=== PATIENT | male | born 1950 | race Caucasian/White ===

== ENCOUNTER 2018-04-29 23:15 | Inpatient (IN) | payer OTHER ==
[~2018-04-29] VITALS: Ht 180.3 cm; Wt 85.7 kg
--- NOTE | ~2018-04-29 | EKG ---
[address] [address] ELECTROCARDIOGRAM REPORT Name: JOSEPH CHAU MODESTO Room #: 449-I ADM IN M.R.#: [id number] Admission: 04/30/18 Attend Phys: Cornelio Phan MD Discharge: Date of : 46 Report #: [id number] THIS REPORT FOR: //name// [facility] ED Test Date: 2018-04-29 Test Time: 23:48:56 Pat Name: JOSEPH CHAU Department: Room: formerly [facility] Gender: M Community Health Education Coordinator: ASHLY : 1950 Requested By: Ada Juarez Order Number: [id number] MD: Rene Sheffield Measurements Intervals [place] Rate: 80 P: 57 TN: 151 QRS: 48 QRSD: 95 T: 49 QT: 355 QTc: 410 Interpretive Statements Sinus rhythm No significant abnormality Compared to ECG 01/24/2018 10:46:44 No significant change was found Electronically Signed On 04-30-2018 8:12:31 CDT by Rene Sheffield [email or web address] <ELECTRONICALLY SIGNED> By: Rene Sheffield MD, [facility] 04/30/18 0812 [id number] Rene Sheffield MD, [facility] /EPI
[~2018-04-29 23:15] MED LIST: ASA5UEC PO; ASPIRIN81 M2 PO; ATORVASTATIN CA40 MG PO; CARAFATE 1 GM TA1 G1 PO; CARAFATE 11 GM/10 M1 PO; CENTRUM SILVER1 EAC2 PO; COREG25 MG PO; COUMADIN 5 MG TA5 M1 PO; ELIQUIS5 MG PO; FLAGYL500 MG PO; FLECAINIDE ACET50 M2 PO; HYDROXYZINE HCL25 M1 PO; LASIX 20 MG TAB20 MG PO; LEVAQUIN 750 M750 MG PO; LOPRESSOR50 PO; MIRALAX17 GM PO; MULTAQ 400 MG400 MG PO; PACERONE 200 M200 M1 PO; PLAVIX 75 MG TA75 M1 PO; PROTONIX40 M1 PO; UNICOMPLEX M TA1 TA1; VITAMIN D5000 UNIT PO
[2018-04-29 23:20] VITALS: BP 156/80
[2018-04-29] MEDS ORDERED: PROTONIX 20 MG20 M1 PO (23:53)
[2018-04-30 00:26] LABS: ABSOLUTE NEUTROPHILS 6.8 thou/uL (1.4-8.2); BASOPHILS 0.6 % (0.0-2.0); EOSINOPHILS 1.1 % (0.0-3.0); HEMATOCRIT 41.8 % (42.0-52.0); HEMOGLOBIN 14.2 gm/dL (14.0-18.0); LYMPHOCYTES 10.3 % (24.0-44.0); MCH 30.4 pg (26.0-34.0); MCV 89.5 fL (80.0-100.0); MONOCYTES 9.2 % (1.0-8.0); PLATELET COUNT 252 thou/uL (150-400); POLYS 78.8 % (36.0-66.0); RBC 4.66 mil/uL (4.50-6.00); RDW 14.1 % (10.5-14.5); WBC 8.7 thou/uL (4.0-11.0)
[2018-04-30 00:33] LABS: ANION GAP 9 mmol/L (7-16); BUN 33 mg/dL (7-18); CALCIUM 10.1 mg/dL (8.5-10.1); CHLORIDE 103 mmol/L (98-107); CO2 27 mmol/L (21-32); CREATININE 1.7 mg/dL (0.7-1.3); GLUCOSE 109 mg/dL (74-106); POTASSIUM 3.8 mmol/L (3.5-5.1); SODIUM 139 mmol/L (136-145)
[2018-04-30 00:42] LABS: ALBUMIN 4.4 g/dL (3.4-5.0); SGOT 126 U/L (15-37); SGPT 107 U/L (30-65); TROPONIN-I <0.06 ng/mL (<0.06)
[2018-04-30 00:55] LABS: LIPASE 5795 U/L (73-393)
[2018-04-30 01:32] VITALS: BP 120/68
[2018-04-30 02:17] VITALS: BP 149/90
[2018-04-30 05:14] LABS: CHOLESTEROL 133 mg/dL (<200); HDL CHOLESTEROL 43 mg/dL (>40); LDL CHOLESTEROL 65 mg/dL (<100); SERUM ASSESSMENT Clear; TC:HDL 3.1 Ratio (Not establshd); TRIGLYCERIDE 127 mg/dL (<150); VLDL 25 mg/dL (<40)
[2018-04-30 07:32] VITALS: BP 126/72
[2018-04-30 15:47] VITALS: BP 163/89
[2018-04-30 18:55] VITALS: BP 146/85
[2018-05-01 07:39] VITALS: BP 134/78
[2018-05-01 08:49] LABS: ALBUMIN 3.6 g/dL (3.4-5.0); CREATININE 1.4 mg/dL (0.7-1.3); POTASSIUM 4.1 mmol/L (3.5-5.1); TOTAL BILIRUBIN 1.1 mg/dL (<0.1-1.0); TOTAL PROTEIN 6.5 g/dL (6.4-8.2)
[2018-05-01 10:13] LABS: MCH 30.6 pg (26.0-34.0); MCHC 34.1 g/dL (28.0-37.0); MCV 89.5 fL (80.0-100.0); RBC 4.24 mil/uL (4.50-6.00); RDW 14.2 % (10.5-14.5); WBC 8.8 thou/uL (4.0-11.0)
[2018-05-01 16:14] VITALS: BP 136/69
[2018-05-01 19:20] VITALS: BP 141/66
[2018-05-02 07:39] VITALS: BP 132/73
[2018-05-02 07:53] LABS: HEMATOCRIT 35.8 % (42.0-52.0); HEMOGLOBIN 12.4 gm/dL (14.0-18.0); MCH 31.1 pg (26.0-34.0); MCHC 34.8 g/dL (28.0-37.0); MCV 89.5 fL (80.0-100.0); WBC 5.4 thou/uL (4.0-11.0)
[2018-05-02 08:10] LABS: CALCIUM 8.8 mg/dL (8.5-10.1); CREATININE 1.3 mg/dL (0.7-1.3); MAGNESIUM 1.9 mg/dL (1.8-2.4); POTASSIUM 3.7 mmol/L (3.5-5.1)
[2018-05-02 08:56] LABS: ALBUMIN 3.1 g/dL (3.4-5.0); DIRECT BILIRUBIN 0.3 mg/dL (<0.1-0.3); TOTAL BILIRUBIN 0.9 mg/dL (<0.1-1.0); TOTAL PROTEIN 6.3 g/dL (6.4-8.2)
[2018-05-02] MEDS ORDERED: AUGMENTIN 875-1 EACH PO (11:11)
[2018-05-02 11:26] VITALS: BP 132/73
== END 2018-05-02 13:26 | disposition home or self-care (01) | DRG 438 ==
LOC: ER 23:15 → EROBS 04-30 01:16 → 4W 04-30 01:16
PROVIDERS: Internal Medicine; Nurse Practitioner Acute Care; Student in an Organized Health Care Education/Training Program
DX: K85.90 Acute pancreatitis without necrosis or infection, unspecified (principal); N17.0 Acute kidney failure with tubular necrosis; K86.1 Other chronic pancreatitis; I25.10 Atherosclerotic heart disease of native coronary artery without angina pectoris; I48.91 Unspecified atrial fibrillation; R74.0 Nonspecific elevation of levels of transaminase and lactic acid dehydrogenase [LDH]; N18.3 Chronic kidney disease, stage 3 (moderate); K21.9 Gastro-esophageal reflux disease without esophagitis; K22.70 Barrett's esophagus without dysplasia; E78.5 Hyperlipidemia, unspecified; Z88.8 Allergy status to other drugs, medicaments and biological substances; Z95.5 Presence of coronary angioplasty implant and graft; Z95.810 Presence of automatic (implantable) cardiac defibrillator; Z79.82 Long term (current) use of aspirin; Z79.899 Other long term (current) drug therapy; Z88.0 Allergy status to penicillin; Z87.891 Personal history of nicotine dependence; I12.9 Hypertensive chronic kidney disease with stage 1 through stage 4 chronic kidney disease, or unspecified chronic kidney disease
CPT/HCPCS: 10040

== ENCOUNTER 2018-05-25 05:31 | Day surgery (SDC) | payer OTHER ==
[~2018-05-25] VITALS: Ht 180.3 cm; Wt 82.1 kg
--- NOTE | ~2018-05-25 | O ---
[facility] [place] [address] [place] [address] OPERATIVE REPORT Name: KANDI,JOSEPH MODESTO HOBBS Room #: DEP [facility] M..#: [id number] Admission: 05/25/18 Attend Phys: Bhavik Barnes MD, Discharge: 05/25/18 Date of : 46 Report #: [id number] THIS REPORT FOR: //name// CC: Devonte Barnes DATE OF SERVICE: 05/25/2018 PREOPERATIVE DIAGNOSES: 1. Symptomatic cholelithiasis with sludge. 2. Prior gallstone pancreatitis. POSTOPERATIVE DIAGNOSES: 1. Symptomatic cholelithiasis with sludge. 2. Prior gallstone pancreatitis. PROCEDURE: Laparoscopic cholecystectomy with intraoperative cholangiogram. SURGEON: Bhavik Barnes M.D. RESPIRATORY THERAPIST: Medical student. ANESTHESIA: General endotracheal anesthesia. ESTIMATED BLOOD LOSS: Minimal (less than 5 mL). COMPLICATIONS: None appreciated. SPECIMENS: Gallbladder to pathology. INDICATIONS: The patient is a 67-year-old male who has been admitted on multiple prior occasions with gallstone pancreatitis and radiologic workup showing small gallstones and sludge as the likely culprit. As such, indication was for the above-mentioned procedure for definitive surgical management ongoing. DESCRIPTION OF PROCEDURE: After explaining the risks, benefits and alternatives of the procedure with the patient in detail in the preoperative holding area and obtaining written consent, the patient was brought to the operating room and placed supine on the operating room table. After conducting a thorough timeout procedure verifying correct patient and procedure, the patient was given general endotracheal anesthesia. Once adequate anesthesia was obtained, his SCDs were hooked up to pneumatic compression device. He was given a preoperative dose of antibiotics in line with the SCIP protocol. The patient's abdomen was prepped and draped in standard surgical sterile fashion. A 5 mL of 0.5% Marcaine with epinephrine was used to anesthetize the skin in the supraumbilical location. A [facility] [address] [place] [address] OPERATIVE REPORT Name: JOSEPH CHAU Room #: DEP [facility]#: [id number] Admission: 05/25/18 Attend Phys: Bhavik Barnes MD, Discharge: 05/25/18 Date of : 46 Report #: [id number] #15 bladed scalpel was used to create a 1 cm transverse skin incision at this location. An 11 mm Visiport was placed over 0 degree 5 mm laparoscope and was introduced through this incision site. Once intra-abdominal placement was verified visually, the obturator for the trocar and laparoscope were both removed and the abdomen was insufflated to 15 mmHg using carbon dioxide gas. The laparoscope was changed to a 5-mm 30-degree laparoscope, which was reintroduced through this trocar. The entire abdomen was evaluated to ensure no injury upon entry. The patient was now placed in reverse Trendelenburg with right side elevated and I proceeded to place three additional 5 mm ports. One was placed in subxiphoid location and two were placed along the patient's right subcostal margin. All three additional 5 mm ports were placed under direct vision after anesthetizing the skin at each location with 5 mL of 0.5% Marcaine with epinephrine and I had created small skin nicks using #15 bladed scalpel. The gallbladder was extremely taut and as such a Topel needle was used to aspirate 120 mL of normal-appearing bile from the gallbladder itself. Using the inferolateral most port along the patient's right flank, the fundus of the gallbladder was grasped and retracted cephalad. Careful tedious dissection was undertaken down around the cholecystocystic junction using combination of Harmonic scalpel and [place] dissector. Once I had attained a critical view, namely the cystic duct emanating from the infundibulum of the gallbladder and coursing to the common bile duct as well as cystic artery running the surface of the gallbladder and I created a window behind each, I transected the cystic artery nearest to the gallbladder side using Harmonic scalpel for hemostasis. A single clip was now placed along the cystic duct nearest to the gallbladder side and a small ductotomy was made just distal to this clip using EndoShears. This ductotomy was cannulated using the Taut cholangiocatheter setup and an intraoperative cholangiogram was obtained. We had prompt opacification of the long cystic duct with both intra and extrahepatic bile ducts becoming opacified. There was antegrade flow of contrast into the duodenum with no evidence of filling defects or obstruction. The cholangiocatheter setup was removed. Three clips were placed along the cystic duct nearest to the common bile duct side and it was transected above these clips using Harmonic scalpel to help seal the end of the duct closed. Further retraction at the infundibulum of the gallbladder in cephalad direction allowed me to elevate the gallbladder off the liver bed using Harmonic scalpel for hemostasis. Once completely detached, the laparoscope was removed, changed to the right midclavicular 5 mm port. The EndoCatch bag was placed in supraumbilical trocar. The specimen was placed within it under direct vision. The pursestring suture was drawn and specimen was removed from the abdomen under direct vision with ease. I then closed the supraumbilical fascial incision using 0 PDS suture on the Elvin-Narda suture passer device under direct vision. This was tied down under direct vision. The gallbladder fossa was evaluated one additional time. The suction breaker oiler was used to irrigate 500 mL of normal saline, which ran clear. The liver bed was raw but we had hemostasis and as such, I did elect to place Lloyd in the bed of the gallbladder fossa for ongoing long-term hemostasis. One final evaluation showed no further evidence of pathology. The clips were seated nicely on the [facility] [address] [place] [address] OPERATIVE REPORT Name: KANDIJOSEPH II Room #: DEP [facility]#: [id number] Admission: 05/25/18 Attend Phys: Bhavik Barnes MD, Discharge: 05/25/18 Date of : 46 Report #: [id number] cystic duct stump remnant. The abdomen was fully desufflated. All remaining trocars were removed under direct vision. A 4-0 Monocryl was used in a standard subcuticular fashion for all skin incisions and Dermabond glue was applied to all skin wounds. The gallbladder was opened on the back table showing significant findings of small gallstones and sludge as well as significant cholesterolosis consistent with chronic cholecystitis, but no other pathologic findings were identified. At the end of the procedure all instrument, needle and sponge counts were correct. The patient tolerated the procedure without incident, was awakened in the operating room, transitioned to the recovery room in stable condition with no apparent complications. <ELECTRONICALLY SIGNED> By: Bhavik Barnes MD, FACS 05/26/18 0807 [id number] Bhavik Barnes MD, FACS /nt
--- NOTE | ~2018-05-25 | PATH ---
[facility] [address] [place] [address] PATHOLOGY RPT PROCEDURE Name: JOSEPH NOVAK II Room #: DEP [facility] M.R.#: [id number] Admission: 05/25/18 Date of : 46 Discharge: 05/25/18 Report #: [id number] Path Case #: [id number] [facility] Accession Number: [id number] . 01 Material submitted: . GALLBLADDER . 01 Clinical history: . Gallbladder sludge . 02 Diagnosis: Gallbladder "gallbladder cholecystectomy": - Moderate chronic cholecystitis. (SHA:alireza; 05/26/2018) QMS/05/26/2018 . 02 Electronically signed: . Matt Lambert MD, Pathologist NPI- [id number] . 01 Gross description: . The specimen is received in formalin, labeled "Joseph Novak II, gallbladder" and consists of a previously opened pink-amaya and edematous gallbladder measuring 6.6 cm in length and up to 3.1 cm in diameter. The mucosa is pink-phillips with multifocal areas of hemorrhage. No calculi are present within the container. The gallbladder wall averages 0.3 cm and no masses or lesions are identified. Formation Testing Operator sections are submitted in A1-A2. (SDY; 05/25/2018) SYU/SYU . 02 Pathologist provided ICD-10: K81.1 . 02 CPT . 194630 Specimen Comment: A courtesy copy of this report has been sent to Specimen Comment: [phone], . Specimen Comment: Report sent to / DR GERMAIN Performed at: [address], [place] [id number] MD Tk Carrizales MD Phone: [phone] Performed at: [address], [place] [id number] MD Page Feng MD Phone: [phone]
[~2018-05-25 05:31] MED LIST changes: +AUGMENTIN 875-1 EACH PO; +PROTONIX 20 MG20 M1 PO; +UNICOMPLEX M TA1 TA1 PO
[2018-05-25 09:07] VITALS: BP 122/67
[2018-05-25] MEDS ORDERED: SENOKOT-S TABL1 EACH PO (11:07)
[2018-05-25] MEDS ORDERED: NORCO 5-325 TA1 EACH PO (11:07)
[2018-05-25 11:36] VITALS: BP 122/67
== END 2018-05-25 12:25 | disposition home or self-care (01) ==
LOC: OR 05:31 → TBA 05:31 → OR 06:51
DX: K80.10 Calculus of gallbladder with chronic cholecystitis without obstruction (principal); I48.91 Unspecified atrial fibrillation; I42.9 Cardiomyopathy, unspecified; Z87.891 Personal history of nicotine dependence; Z88.8 Allergy status to other drugs, medicaments and biological substances; Z98.890 Other specified postprocedural states; Z87.19 Personal history of other diseases of the digestive system; Z88.0 Allergy status to penicillin; Z79.82 Long term (current) use of aspirin; Z79.899 Other long term (current) drug therapy
CPT/HCPCS: 50010; 50101; 50249; 50411; 50555; 50558; 50900; 50962; 51489; 51975; 52265; 52287; 53307; 54022; 54118; 55245; 55317; 56462; 56525; 56526; 62110; 62900; 70005